=== PATIENT | female | born 1975 | race Caucasian/White ===

== ENCOUNTER 2024-10-17 00:14 | Emergency (ER) | payer BC ==
[~2024-10-17] VITALS: Ht 152.4 cm; Wt 54.4 kg
[2024-10-17] MEDS ORDERED: Ketorolac Tromethamine 30 MG/ML VIAL IM ONE (02:45)
[2024-10-17] MEDS ORDERED: NAPROXEN250 MG PO (03:01)
== END 2024-10-17 03:04 | disposition home or self-care (01) ==
LOC: ED 00:14
DX: S20.211A Contusion of right front wall of thorax, initial encounter (principal); S00.93XA Contusion of unspecified part of head, initial encounter; S90.31XA Contusion of right foot, initial encounter; S50.01XA Contusion of right elbow, initial encounter; Y04.2XXA Assault by strike against or bumped into by another person, initial encounter; Y93.89 Activity, other specified; Y92.89 Other specified places as the place of occurrence of the external cause; Y99.8 Other external cause status